=== PATIENT | female | born 1955 | race Caucasian/White ===

== ENCOUNTER 2023-11-03 06:11 | Day surgery (SDC) | payer MEDICARE, OTHER, SELFPAY ==
[2023-11-03] VITALS (11 sets, daily range): BP systolic 113–152; BP diastolic 70–103; BMI 35.6
[2023-11-03] MEDS: NSS 274 ML IV (06:58)
--- NOTE | 2023-11-03 08:51 | ITS.CL.ANGIO ---
Investigator Claims - Angioplasty
Angioplasty
Procedure Report:
CORONARY ANGIOPLASTY REPORT
Date of Procedure: 11/03/2023
Referring: Chad Borrero MD
PROCEDURE SUMMARY:
Laser atherectomy and intravascular ultrasound guided percutaneous coronary intervention of the severe in-stent proximal left anterior descending stenosis recently shown to be ischemic by fractional flow reserve.
CORONARY ANGIOGRAPHY -see prior procedural results from [facility] on 10/22/2023 for full report.
Dominance: Right
Left Main: The left main is large sized and shows minor luminal irregularities.
LAD: The left anterior descending is a large sized vessel that wraps the apex serving a large high diagonal branch and a medium proximal diagonal branch. There is a stent in the proximal vessel with a focal 80% in-stent restenotic lesion which was
recently found to be severely ischemic by fractional flow reserve. In the mid to distal vessel there is a long segment of stent with no evidence of in-stent restenosis. The initial diagonal branch has a widely patent proximal stent. The second
diagonal branch has a proximal calcified 50% stenosis prior to a bifurcation. The remainder the system shows mild diffuse atherosclerosis.
DESCRIPTION OF PROCEDURE:
Heparin was used as the anticoagulant of choice and the ACT was demonstrated be therapeutic throughout the procedure. Via a 6 Latvian XB 3.0 guiding catheter, a 180 cm power turn wire was carefully manipulated past the severe stenosis in the
proximal left anterior descending and anchored near the apex of the vessel. Intravascular ultrasound was performed which showed a severe in-stent restenotic lesion at a point of modest deformity in the mid stent struts of the stent and that the
vessel diameter was approximately 4.0 mm in diameter. A 0.9 mm ELCA Excimer laser catheter then was used for 4 passes utilizing 2800 pulses of laser energy for atherectomy. A 4.0 x 12 mm NC trek balloon was then deployed 4 times at 18 jr. There
was essentially no residual stenosis and the portion of the stent which was not well opposed was clearly well opposed, so intervention with a stent was deferred. The wire was removed and final angiography showed excellent results.
ANTI-COAGULATION THERAPY
1: Heparin 10,000 units IV
Closure Device Used: Not applicable. Radial band utilized for hemostasis without difficulty.
Radiation (mGy): 537.75
DAP (cm2.Gy): 38.02
Fluoroscopy time (minutes): 5.7
CONCLUSIONS:
1: Successful laser atherectomy and intravascular ultrasound-guided percutaneous coronary intervention of the known ischemic by fractional flow reserve proximal left anterior descending in-stent restenosis with balloon angioplasty alone; results
were excellent so an additional layer of stent was not required.
2: Patient should be considered fully revascularized at this time.
RECOMMENDATIONS:
1: Continued aggressive medical management for the secondary prevention of coronary artery disease including lifelong antiplatelet and lipid-lowering therapies.
2: Dual antiplatelet therapy with clopidogrel for minimum of 6 months time.
3: Stable for discharge later in the day.
Copy to: Chad Borrero MD
Suresh Miller MD, FACC
[2023-11-03] MEDS: TYLENOL 650 MG PO (09:54)
[2023-11-03] MEDS: NSS 685 IV (09:55)
--- NOTE | 2023-11-03 13:08 | W.PN.UPDATE ---
Update Note
Progress Note Update
Pt seen post LAD laser atherectomey and angioplasty. Right radial cath site without ht/bleeding, non tender. Post EKG NSR, LBBB as before, no acute changes. Will continue aspirin/plavix as before as well as other meds. Cardiac rehab consulted.
Followup with Dr. Borrero as scheduled. Home later today if cath site/tele remain stable.
[2023-11-03 13:14] LABS: ACT-LR - POC > 397 Seconds (116-155)
== END 2023-11-03 14:04 | disposition home or self-care (01) ==
LOC: CATH 06:11
PROVIDERS: ATTENDING PHYSICIAN Internal Medicine Interventional Cardiology; FAMILY PHYSICIAN Internal Medicine; OTHER PHYSICIAN Internal Medicine Cardiovascular Disease
DX: I25.10 Atherosclerotic heart disease of native coronary artery without angina pectoris (principal); T82.855A Stenosis of coronary artery stent, initial encounter; Y83.9 Surgical procedure, unspecified as the cause of abnormal reaction of the patient, or of later complication, without mention of misadventure at the time of the procedure; R06.02 Shortness of breath; E78.2 Mixed hyperlipidemia; R73.9 Hyperglycemia, unspecified; I25.2 Old myocardial infarction; Z95.5 Presence of coronary angioplasty implant and graft; Z79.82 Long term (current) use of aspirin; Z79.02 Long term (current) use of antithrombotics/antiplatelets
CPT/HCPCS: 92978; C1725; C1894; C1887; C1753; 85347; 92924; 93005; Q9967

== ENCOUNTER 2024-10-14 11:50 | Inpatient (IN) | payer MEDICARE, OTHER, SELFPAY ==
--- NOTE | 2024-10-08 08:33 | HPS.HSE ---
Family Physician
-
Family Physician: NO INTERVIEW UNKNOWN
Chief Complaint
-
Left ventricular dysfunction. Congestive heart failure.
History of Present Illness
The patient is a 69 year old female presenting today for congestive heart failure. She is considered to have class 2 heart failure. She has been on guideline based medical therapy for her heart failure for more than 3 months; however, she
is noted to have a persistent left ventricular dysfunction of 25-30% on her most recent echocardiogram. Her most recent EKG also noted a wide QRS of 160 msec in a left bundle branch pattern. It is recommended she proceed with a biventricular ICD
implant at this time for prevention of sudden cardiac events and even . She denies any current complaints today such as chest pain, shortness of breath at rest, palpitations, nausea, vomiting, diarrhea, lightheadedness, dizziness, cough, sore
throat, or fever.
Medical History
Past Medical History
Past Medical History: Reports Other
Additional Past Medical History:
1. Left ventricular dysfunction.
2. Congestive heart failure.
3. Hypertension.
4. Hyperlipidemia.
5. Coronary artery disease/anterior wall myocardial infarction, status post PCI with stent to LAD 2007, PCI with stent to 1st diagonal branch of LAD 2017, PCI with mid LAD stent due to total occlusion 10/2023, and laser atherectomy of proximal LAD
in-stent stenosis 10/2023; on Plavix and Aspirin.
6. Ischemic cardiomyopathy.
7. Mild renal insufficiency per pre-operative labs.
8. Non-insulin dependent diabetes.
9. GERD.
10. Colon polyps.
11. Diverticulosis with history of diverticulitis.
12. Lumbosacral herniated discs.
13. Osteoarthritis.
14. Hyperparathyroidism, status post parathyroidectomy 2021.
15. Hearing impairment.
16. Mildly elevated transaminases.
17. Obesity, BMI 34.0.
Past Surgical History: Reports Other
Additional Past Surgical History:
1. PCI with stent to LAD.
2. PCI with stent to 1st diagonal branch of LAD.
3. PCI with mid LAD stent due to total occlusion.
4. Laser atherectomy of proximal LAD in-stent stenosis.
5. Parathyroidectomy.
6. L5-S1 laminectomy.
7. Mohs surgery x2 (benign).
8. Colonoscopy x2.
Social History
Tobacco: Non-smoker
Alcohol: Other (Social use reported. )
Personal:
Living: Alone (in a 2 story home. )
Family History
Family History: Not pertinent
Allergies / Home Medications
Allergy/Medication List:
Home medications:
1. Acetaminophen 1000 mg p.o. every 6 hours as needed.
2. Aspirin 81 mg p.o. daily.
3. Carvedilol 6.25 mg p.o. twice a day.
4. Plavix 75 mg p.o. daily.
5. Farxiga 10 mg p.o. daily.
6. Zetia 10 mg p.o. daily.
7. Pepcid 20 mg p.o. daily.
8. Furosemide 20 mg p.o. daily.
9. Lisinopril 2.5 mg p.o. daily.
10. Loratadine 10 mg p.o. daily.
11. Nitroglycerin 0.4 mg sublingual every 5 minutes as needed (max of 3 doses).
12. Rosuvastatin 40 mg p.o. daily.
13. Ozempic 1 mg subcutaneous on Wednesdays.
14. Ibuprofen 600 mg p.o. daily as needed.
15. Naproxen sodium 440 mg p.o. every 12 hours as needed.
Allergies: No known allergies.
Review of Systems
-
A 12 point ROS was completed and negative except as noted: Yes
Physical Exam
Vital Signs
Blood pressure 141/82. Heart rate 70. Respirations 18. Pulse ox 98% on room air.
Height 5 feet, 3 inches. Weight 87.1 kg. BMI 34.0.
Physical Exam
General: Well Developed, Well Nourished and No Apparent Distress
HEENT: NormoCephalic, Moist mucous membranes, Atraumatic, PERRLA and Hearing Impaired
Respiratory: Clear
Cardiac: Regular Rhythm
GI: Soft, Non Tender, Non Distended and Other (Obese. )
Musculoskeletal: No Edema and Normal Gait & Station
Skin: Warm and Dry
Neuro: AO x 3 and Nonfocal/grossly intact
Laboratory Results
-
DIAGNOSTIC STUDIES as of 10/08/2024: White blood cell count 6.3. Hemoglobin 14.6. Platelet count 192,000. PT 13.4. INR 0.99. Sodium 140. Potassium 4.1. BUN 20. Creatinine 1.1. Glucose 170. Calcium 9.6. Magnesium 2.0. AST 62. ALT 75. Albumin 5.2.
EKG 10/08/2024: Normal sinus rhythm. Left axis deviation. Left ventricular hypertrophy with QRS widening. Possible lateral infarct, cited on or before November 03, 2023. Compared to the prior EKG of November 03, 2023, no significant change was
found.
Echocardiogram 03/26/2024: Left atrial enlargement. Normal valvular structures. Moderate to severe left ventricular dysfunction. Ejection fraction is 25-30%. Normal right ventricular systolic function. Grade 2 diastolic dysfunction. Normal right
ventricular systolic pressure.
Impression/Plan
-
IMPRESSION/PLAN:
1. Left ventricular dysfunction and congestive heart failure: The patient is in need of a biventricular ICD implant with Dr. Nadir Munroe on 10/14/2024. The benefits and risks of the procedure have been explained to the patient. The patient
understands these risks and wishes to proceed. She is aware to hold her Farxiga 3 days prior to her procedure. She will not take Ozempic within a week of her procedure date.
[2024-10-08 10:40] VITALS: BMI 34.0
[2024-10-14] VITALS (11 sets, daily range): BP systolic 116–144; BP diastolic 72–102; BMI 32.8
[2024-10-14 10:48] LABS: Glucose - Point of Care 207 mg/dl (70-99)
--- NOTE | 2024-10-14 11:08 | W.ICD.CONTRA ---
Post ICD/CORRECTIONAL CASEWORK SPECIALIST-D
-
History of SC?: Yes
LV Function
Left ventricular function study result?: Ejection Fraction </= 35%
ACEI/ARB/ARNI
Patient already on ACEI/ARB/ARNI: Yes
Beta-Malika
Patient already on Beta Malika: Yes
--- NOTE | 2024-10-14 15:55 | ITS.CL.ICD ---
Addendum entered and electronically signed by Nadir Munroe MD 10/14/24 16:47:
Although we saw no evidence for phrenic nerve capture in any configuration for the LV lead tested in the lab lying flat when sitting up out in the holding area she was getting rare diaphragmatic stim in an LV 1 to RV coil location. We tested all
vectors and demonstrated left ventricular capture without phrenic capture in the LV4-LV3 configuration and LV4-LV2 configuration at max output with thresholds in the 3 to 3.25 V at 1.0 ms range. At max output in these 2 configurations there was no
phrenic nerve capture. Given her relative youth we would like to try to extend battery so we programmed her LV only pacing with an output at 4 V at 1.5 ms and she has intact sinus node function so she will likely sense in the atrium and right
ventricular leads and paced only in the left ventricular lead to extend battery. I rechecked on her 15 minutes later and she had no evidence for phrenic nerve capture. The phrenic nerve capture in LV 1 to RV coil location was relatively soft but
it was bothersome to the patient.
-Check chest x-ray, sling, anticipate discharge on October 15
Original Note:
Architectural Wood Model Maker - ICD
Implantable Cardioverter Defibrillator
Procedure Report:
Date of Procedure: October 14, 2024
Patient : 1955
Procedures: BiV ICD implantation
Indication: 1) Class III CHF, LVEF less than 35%, 2) left bundle Branch Block, QRS 164 ms
Implants:
Pulse Generator: Back[employer]; Model# [id number]; Serial#�[id number]
Atrial Lead: Medtronic: Model# [id number]; Serial# [id number]
Right Ventricular Lead: Medtronic; Model# [id number]; Serial# [id number]
Left Ventricular Lead: Medtronic; Model# [id number]; Serial# [id number]
Technique: The patient was prepped and draped in the usual fashion. Local anesthetic was applied to the left prepectoral subcutaneous tissue. A 4 inch incision was made. The left axillary vein was accessed��without difficulty. A subcutaneous pocket
was CREATED. Hemostasis was excellent. The leads were introduced with hemostatic peel away introducer sheaths. The right ventricular lead was placed at the right ventricular apical septum. Multiple areas of the right ventricle were mapped and we
utilized the apical septum with a R wave of 3.5 and integrated bipolar of 8.5 with acceptable threshold and a good current of injury. Other sites on the septum did not have a good current of injury and hence the lead was moved to the final
location. The atrial lead was placed in the right atrial appendage the patient went into atrial fibrillation during placement of the atrial lead and the patient was sedated and cardioverted with a 200 J synchronized biphasic shock and the atrial
lead was then assessed with a threshold of less than 1 V at 0.5 ms. The coronary sinus was accessed with the aid of the Attain system. The left ventricular lead was placed in the posterior lateral branch. 10 volt pacing did not capture the
diaphragm. The leads were secured to the pectoralis muscle and fascia. The leads were appropriately attached to the device. The pocket was irrigated with antibiotic solution. The device and leads were placed in the pocket and the device was secured
to pectoralis muscle and facia. The incision was closed with absorbable sutures. The estimated blood loss was minimal. There were no complications. Device based testing was performed as described below. IV contrast total: 5 cc.
System Analysis:
RA lead: P: 2.5 mV; Threshold: 0.5 V @ 0.5 ms; Impedance: 460 ohms.
RV lead: R: 5 mV; Threshold: 0.75 V @ 0.5 ms; Impedance: 420 ohms.
LV lead: R: 3 mV; Threshold: 1.25 V @ 0.5 ms in LV 1�coil; Impedance: 370 ohms.
Final Programming: Tachy: VT/VF:188; Shawn: DDD 50-130 bpm
Conclusion: Uncomplicated Biventricular ICD implant
Recommendation: Routine post BiV ICD care.
cc: Dr. Chad Borrero
[2024-10-14] MEDS: TYLENOL 650 MG PO ×2 (17:12→21:16)
[2024-10-14] MEDS: ASPIR LOW (ENTERIC COATED) 81 MG PO (17:12)
--- NOTE | 2024-10-14 18:15 | PTCARENOTE ---
Received patient from recovery area at 1700 after BiVICD placement left upper chest. Aquacel dressing is dry and intact with immobilizer in place. Oriented to the room and plan of care, admission assessment updated. Taken for CXR, medicated for
pain with tylenol PO for discomfort with relief. Sitting oob in the chair now, call [facility] in reach.
[2024-10-14] MEDS: ANCEF 5 IV (19:22)
[2024-10-14] MEDS: COREG 6.25 MG PO (19:22)
--- NOTE | 2024-10-14 23:00 | PTCARENOTE ---
Patient received at change of shift resting in the bed. Left anterior chest wall aquacell C/D/I, surrounding area soft to palpation. Left arm immobilizer in place. Bilateral radial pulses palpable. Patient denies numbness and/or tingling to
extremities. Patient reports some incisional pain, see MAR for PRN pain medication administration. Patient denies difficulty breathing. Oxygen saturation 96-97% on room air. V-paced on monitor with BBB. Plan of care discussed. Call [facility] within
reach. Care ongoing.
[2024-10-15] MEDS: ANCEF 5 IV (03:13)
[2024-10-15] MEDS: TYLENOL 650 MG PO ×2 (03:13→08:01)
[2024-10-15 03:14] VITALS: BP 132/84
[2024-10-15 03:25] VITALS: BMI 35.7
[2024-10-15 03:55] LABS: Hematocrit 35.6 % (37.0-47.0); Hemoglobin 12.1 g/dL (12.0-16.0); Mean Corpuscular Hgb 30.3 pg (27.0-31.0); Mean Corpuscular Volume 89.2 fL (81.0-99.0); Mean Platelet Volume 9.9 fL (7.4-10.4); Platelet Count 144 10^3/uL (130-400); Red Blood Cell Count 3.99 10^6/uL (4.20-5.40); Red Cell Dist. Width 12.8 % (11.5-14.5); White Blood Cell Count 7.8 10^3/uL (4.8-10.8)
[2024-10-15 04:18] LABS: Blood Urea Nitrogen 19 mg/dl (7-17); Calcium 9.4 mg/dl (8.4-10.2); Carbon Dioxide 20 mmol/L (22-30); Chloride 102 mmol/L (98-107); Estimated Creatinine Clearance 64 ml/min; Glucose 160 mg/dl (70-99); Potassium 4.4 mmol/L (3.5-5.1); Sodium 134 mmol/L (135-145); eGFR > 60.00
[2024-10-15 05:07] LABS: Hepatitis C Antibody Negative (Negative)
[2024-10-15 07:34] VITALS: BP 141/86
[2024-10-15] MEDS: ZESTRIL 2.5 MG PO (07:58)
[2024-10-15] MEDS: COREG 6.25 MG PO (07:58)
[2024-10-15] MEDS: ASPIR LOW (ENTERIC COATED) 81 MG PO (07:58)
[2024-10-15] MEDS: PLAVIX 75 MG PO (07:58)
[2024-10-15] MEDS: CRESTOR 40 MG PO (07:58)
[2024-10-15] MEDS: FARXIGA 10 MG PO (07:58)
[2024-10-15] MEDS: ZETIA 10 MG PO (07:58)
[2024-10-15] MEDS: FLUSH (NSS) 1 FLUSH IV (07:59)
[2024-10-15] MEDS: PEPCID 20 MG PO (08:01)
--- NOTE | 2024-10-15 08:46 | W.PN.CARDCBS ---
Addendum entered and electronically signed by Nadir Munroe MD 10/15/24 09:30:
patient seen and examined
agree with TARE WORKER note and assessment
agree with TARE WORKER plan
exam:
CXR reviewed
stable leads
appropriate a sense/v pace
site cdi
remainder per TARE WORKER note
Impression:
Chronic HFrEF 25-30%
Post BiV ICD 10/14/24
ICMP
CAD/DC PCI LAD 2007, Dia2017, ISR LAD PCI 10/2023
HTN
HLD
DM2
GERD
OA
Lumbar disc disease
Plan:
post device site stable-I wonder if distal LV1-2 have local diaphragm capture they run close to diaphragm on cxr. no stim utilizing the posterior poles LV3-4 and may adjust over time and could switch down the line to other poles
No further diaphragmatic stim o/n after device adjustments
tele Vpaced
CXR no PTX, leads in position
CAD - continue DAPT ASA/Plavix, rosuvastatin
Tylenol PRN pain, limit use of NSAIDS
HF continue carvedilol, lisinopril, dapagliflozin, lasix
Activity restrictions reviewed
Incision check 1 week at [facility]
continue cardiac care with Dr. Borrero
home today
Original Note:
Today's Communication / Plan
-
stable for d/c home
Impression / Plan
-
PCP: Nadir Dumont MD
CDY: Suresh Borrero MD
Impression:
Chronic HFrEF 25-30%
Post BiV ICD 10/14/24
ICMP
CAD/DC PCI LAD 2007, Diag 2017, ISR LAD PCI 10/2023
HTN
HLD
DM2
GERD
OA
Lumbar disc disease
Plan:
post device site stable
No further diaphragmatic stim o/n after device adjustments
tele Vpaced
CXR no PTX, leads in position
CAD - continue DAPT ASA/Plavix, rosuvastatin
Tylenol PRN pain, limit use of NSAIDS
HF continue carvedilol, lisinopril, dapagliflozin, lasix
Activity restrictions reviewed
Incision check 1 week at [facility]
continue cardiac care with Dr. Borrero
home today
Progress Note - Lining Repairer
Subjective
Date of Service: October 15, 2024
no cp, sob
Objective
Labs:
10/15/24 03:19
10/15/24 03:19
Labs
Hgb 12.1 g/dL (12.0-16.0) 10/15/24 03:19
Hct 35.6 % (37.0-47.0) L 10/15/24 03:19
Plt Count 144 10^3/uL (130-400) D 10/15/24 03:19
Sodium 134 mmol/L (135-145) L 10/15/24 03:19
Potassium 4.4 mmol/L (3.5-5.1) 10/15/24 03:19
BUN 19 mg/dl (7-17) H 10/15/24 03:19
Creatinine 0.9 mg/dL (0.6-1.0) 10/15/24 03:19
Glucose 160 mg/dl (70-99) H 10/15/24 03:19
Vital Signs and I&O:
Vital Signs
Temp Pulse Resp BP Pulse Ox
98.2 F 74 18 141/86 96
10/15/24 07:34 10/15/24 07:34 10/15/24 07:34 10/15/24 07:34 10/15/24 07:34
Vital Signs
Temp Pulse Resp BP Pulse Ox
98.2 F 74 18 141/86 96
10/15/24 07:34 10/15/24 07:34 10/15/24 07:34 10/15/24 07:34 10/15/24 07:34
Intake & Output
10/13/24 10/14/24 10/15/24 10/16/24
06:59 06:59 06:59 06:59
Intake Total 240 / 240
Balance 240 / 240
Physical Exam
Physical Exam
NAD<AOx3
S1, S2, RRR
CTAB, non labored, no wheeze
SNTND Bsx4
L CW dressing c/d/i no HT
--- NOTE | 2024-10-15 08:56 | CM ---
Reviewed chart. Met with Mrs. Hoang to review discharge plans. She states prior to admission she resides alone in a three stroy home with one step to enter. She states she has a full flight of steps to get to bedroom/full bathroom. She states
she has a powder room on the first floor. She states prior to admission she was independent with ambulation and adls. She states she hussein not have any DME in the home. She states she has a prescription plan and uses [facility]. Medical
work-up in progress. The discharge plan is to return home when medically stable.
--- NOTE | 2024-10-15 10:18 | PTCARENOTE ---
The patient is aaox3, vital signs are stable. 96% on RA. She is 100% v-paced on the monitor. Her left chest wall dressing is c/d/i. I removed her left arm immobilizer. I instructed her on her activity restrictions for the next month. She states her
understanding and compliance of these instructions.
[2024-10-15 11:24] VITALS: BP 124/74
--- NOTE | 2024-10-15 11:24 | W.HF.CON ---
Heart Failure
- LV Function
Left ventricular function study result: LV Ejection fraction </= 35%
Ejection Fraction Percentage: 25-30
- ARNI
Patient already on ARNI: No
Heart Failure ARNI Contraindication: Worsening Renal Function (per office note on (06/03/24))
- ACEI/ARB
Patient already on ACEI/ARB: Yes
- Beta Malika
Patient already on Evidence Based Beta Malika: Yes
- Mineralocorticord Receptor Antagonist
Patient already on MRA: No
Heart Failure MRA Contraindication: Patient Refusal
- SGLT-2 Inhibitor
Patient already on SGLT-2 Inhibitor: Yes
- NYHA CHF Classification
NYHA CHF Classification Level: Class II - Slight limitation by SOB and/or fatigue during mod exertion
- ACC/AHA Stage
ACC/AHA Stage: Stage C: Symptomatic Heart Failure
--- NOTE | 2024-10-15 11:32 | W.DS.TRANS ---
DC Summary - Digital Account Manager
-
Discharge Instructions:
Sleep Apnea Risk Low
Discharge Diagnosis/Procedures BiV ICD implant
Diet Low Cholesterol,2 Gram Sodium
Driving Restrictions No driving for 1 week
Bathing Restrictions OK to Shower
Instructions: *[facility] Heart Failure Instructions
Stand-Alone Forms: DC Inst - Implanted Device
Changes to Home Medications: No
Discharge Medications:
DC Medications w/original date entered in [employer]
acetaminophen 500 mg capsule 1,000 mg PO Q6H PRN pain 11/03/23
aspirin 81 mg tablet,delayed release 81 mg PO DAILY Blood Clot Prevention/Tx 11/03/23
clopidogrel 75 mg tablet (Plavix) 75 mg PO DAILY Blood Clot Prevention/Tx 11/03/23
ezetimibe 10 mg tablet (Zetia) 10 mg PO DAILY High Cholesterol 11/03/23
lisinopril 2.5 mg tablet 2.5 mg PO DAILY Blood Pressure 11/03/23
loratadine 10 mg tablet 10 mg PO DAILY Allergies 11/03/23
nitroglycerin 0.4 mg sublingual tablet 0.4 mg sublingual [id number] PRN chest pain #25 tabs 11/03/23
rosuvastatin 40 mg tablet 40 mg PO DAILY High Cholesterol 11/03/23
carvedilol 6.25 mg tablet (Coreg) 6.25 mg PO BID Blood Pressure 10/05/24
dapagliflozin propanediol 10 mg tablet (Farxiga) 10 mg PO DAILY 10/05/24
famotidine 20 mg tablet (Pepcid) 20 mg PO DAILY Gastrointestinal Issue 10/05/24
furosemide 20 mg tablet (Lasix) 20 mg PO DAILY Fluid Retention/Swelling 10/05/24
semaglutide 1 mg/dose (4 mg/3 mL) subcutaneous pen injector (Ozempic) 1 mg SC WE 10/05/24
ibuprofen 200 mg tablet 600 mg PO DAILYPRN PRN pain 10/08/24
naproxen sodium 220 mg tablet 440 mg PO Q12H PRN pain 10/08/24
Home Medication Changes
Pending Results: No
== END 2024-10-15 11:54 | disposition home or self-care (01) | DRG 277 ==
LOC: IVU 11:50
PROVIDERS: Nurse Practitioner Adult Health; ADMITTING PHYSICIAN Internal Medicine Cardiovascular Disease; FAMILY PHYSICIAN Internal Medicine
PROC: 02HL3KZ Insertion of Defibrillator Lead into Left Ventricle, Percutaneous Approach (ICD-10-PCS; 2024-10-14)
PROC: 0JH609Z Insertion of Cardiac Resynchronization Defibrillator Pulse Generator into Chest Subcutaneous Tissue and Fascia, Open Approach (ICD-10-PCS; 2024-10-14)
PROC: 02HK3KZ Insertion of Defibrillator Lead into Right Ventricle, Percutaneous Approach (ICD-10-PCS; 2024-10-14)
PROC: 02H63KZ Insertion of Defibrillator Lead into Right Atrium, Percutaneous Approach (ICD-10-PCS; 2024-10-14)
DX: I11.0 Hypertensive heart disease with heart failure (principal); I50.22 Chronic systolic (congestive) heart failure; E78.5 Hyperlipidemia, unspecified; E11.9 Type 2 diabetes mellitus without complications; I25.10 Atherosclerotic heart disease of native coronary artery without angina pectoris; I25.5 Ischemic cardiomyopathy; I44.7 Left bundle-branch block, unspecified; K21.9 Gastro-esophageal reflux disease without esophagitis; I25.2 Old myocardial infarction; E66.9 Obesity, unspecified; Z68.34 Body mass index [BMI] 34.0-34.9, adult; Z95.5 Presence of coronary angioplasty implant and graft; Z79.82 Long term (current) use of aspirin; Z79.02 Long term (current) use of antithrombotics/antiplatelets; Z79.85 Long-term (current) use of injectable non-insulin antidiabetic drugs; Z79.84 Long term (current) use of oral hypoglycemic drugs
CPT/HCPCS: 33225; 33249; 71045; 80048; 82962; 83735; 85027; 86803; 93005; C1730; C1769; C1777; C1882; C1887; C1892; C1898; C1900; Q9967

== ENCOUNTER → 2024-10-26 14:21 | Outpatient (REF) | payer MEDICARE, OTHER, SELFPAY | LOC: RAD 14:21 | PROVIDERS: ATTENDING PHYSICIAN Internal Medicine Cardiovascular Disease; FAMILY PHYSICIAN Internal Medicine | DX: Z95.810 Presence of automatic (implantable) cardiac defibrillator (principal) | CPT/HCPCS: 71046 ==